=== PATIENT | female | born 1980 ===

== ENCOUNTER 2020-02-16 01:17 | Emergency (ER) | payer SELFPAY | END 2020-02-16 01:30 | disposition left against medical advice (07) | LOC: ED 01:17 | DX: R45.851 Suicidal ideations (principal); Z53.21 Procedure and treatment not carried out due to patient leaving prior to being seen by health care provider ==

== ENCOUNTER 2020-02-16 06:56 | Emergency (ER) | payer SELFPAY ==
[2020-02-16] MEDS ORDERED: chlordiazePOXIDE 25 MG CAP PO ONE (11:30)
--- NOTE | 2020-02-16 11:30 | Emergency Department Report ---
ED Alcohol HPI - General Chief Complaint: Alcohol Stated Complaint: DETOX,CHEST PAIN Time Seen by Provider: 02/16/20 11:05 Source: patient Mode of arrival: Ambulatory Limitations: No Limitations - History of Present Illness Initial Comments: Chief complaint: I want help with math and alcohol." HPI: Is a 39-year-old female who was dropped off with history of methamphetamine and alcohol use who requests detox from methamphetamine and alcohol. She was dropped off by her cousin at the local [employer]. Her cousin left her at the gas station. She has been using methamphetamine alcohol daily after argument with her mother. She has anxiety depression. SHe denies suicidal ideation. She denies physical complaints. Last use of methamphetamine and alcohol this morning. MD Complaint: desires rehab Chronic Alcohol Use: Yes Associated Symptoms: depression - Related Data Previous Rx's Medication Instructions Recorded Last Taken Type chlordiazePOXIDE [Librium] 25 mg PO Q6H PRN #10 capsule 02/16/20 Unknown Rx Allergies Allergy/AdvReac Type Severity Reaction Status Date / Time Penicillins Allergy Unknown Verified 02/16/20 07:46 ED Review of Systems ROS: Stated complaint: DETOX,CHEST PAIN Other details as noted in HPI Comment: All other systems reviewed and negative Constitutional: denies: fever, malaise Respiratory: denies: cough, shortness of breath Cardiovascular: denies: chest pain ED Past Medical Hx - Past Medical History Previous Medical History?: Yes Hx Heart Attack/AMI: Yes Hx Psychiatric Treatment: Yes (ANXIETY DEPRESSION) - Surgical History Past Surgical History?: Yes Hx Coronary Stent: Yes - Medications Home Medications: Home Medications Medication Instructions Recorded Confirmed Last Taken Type chlordiazePOXIDE [Librium] 25 mg PO Q6H PRN #10 capsule 02/16/20 Unknown Rx ED Physical Exam - General Limitations: No Limitations General appearance: alert, in no apparent distress - Head Head exam: Present: atraumatic, normocephalic - Eye Eye exam: Present: normal appearance - ENT ENT exam: Present: mucous membranes moist - Neck Neck exam: Present: normal inspection, full ROM - Respiratory Respiratory exam: Present: normal lung sounds bilaterally. Absent: respiratory distress, wheezes, rales, rhonchi - Cardiovascular Cardiovascular Exam: Present: regular rate, normal rhythm, normal heart sounds. Absent: systolic murmur, diastolic murmur, rubs, gallop - GI/Abdominal GI/Abdominal exam: Present: soft, normal bowel sounds. Absent: distended, tenderness, guarding - Extremities Exam Extremities exam: Present: normal inspection - Back Exam Back exam: Present: normal inspection - Neurological Exam Neurological exam: Present: alert, oriented X3 - Psychiatric Psychiatric exam: Present: normal affect, depressed - Skin Skin exam: Present: warm, dry, intact, normal color. Absent: rash ED Course Vital Signs 02/16/20 07:50 Temperature 98.8 F Pulse Rate 106 H Respiratory 18 Rate Blood Pressure 136/69 [Right] O2 Sat by Pulse 97 Oximetry ED Medical Decision Making - Medical Decision Making Ms. Dc has a history of methamphetamine alcohol use. She is concerned for alcohol withdrawal. I have prescribed Librium. She does not meet criteria for inpatient stabilization. She is discharged home. Critical care attestation.: If time is entered above; I have spent that time in minutes in the direct care of this critically ill patient, excluding procedure time. ED Disposition Clinical Impression: Methamphetamine abuse, Alcohol abuse Disposition: DC-01 TO HOME OR SELFCARE Is pt being admited?: No Does the pt Need Aspirin: No Condition: Stable Instructions: Amphetamines Use Disorder, Alcohol Use Disorder Prescriptions: chlordiazePOXIDE [Librium] 25 mg PO Q6H PRN #10 capsule PRN Reason: alcohol withdrawal symptoms
[2020-02-16 12:33] VITALS: BP 136/68
== END 2020-02-16 11:50 | disposition home or self-care (01) ==
LOC: ED 06:56
DX: F10.10 Alcohol abuse, uncomplicated (principal); F15.10 Other stimulant abuse, uncomplicated; I25.2 Old myocardial infarction; F41.9 Anxiety disorder, unspecified; F32.9 Major depressive disorder, single episode, unspecified; Z98.890 Other specified postprocedural states; Z79.899 Other long term (current) drug therapy; Z88.0 Allergy status to penicillin
CPT/HCPCS: 99282

== ENCOUNTER 2020-11-02 12:07 | Emergency (ER) | payer SELFPAY ==
--- NOTE | 2020-11-02 12:58 | Event Note ---
Date of service: 11/02/20 Event Note: This patient is medically stable and appropriate for treatment in a psychiatric setting, ie. their behavioral disturbance is unlikely to be due to a medical condition or physical trauma, and their medical/surgical treatment for any concomitant conditions is within the capabilities of the receiving facility.
--- NOTE | 2020-11-02 13:01 | Emergency Department Report ---
Didi Doc - Documentation Documentation: 39-year-old female presents to the emergency room stating she needs a medical clearance to go back to her for blood. Patient states that she was seen at [facility] yesterday she was having some chest discomfort. She states that they did blood work EKG. She denies any chest pain or shortness of breath at this time. She is concerned that her anxiety is starting to heightened as she was not given her Klonopin in an Ativan this morning as she was waiting for the pharmacy to deliver. Patient has no other concerns at this time. Patient is unvaccinated. General: Awake, appropriately interactive, no acute distress. Neck: Supple. Full range of motion intact. Cardiovascular: Normal peripheral perfusion. Pulmonary: No respiratory distress. Patient is speaking normally without use of accessory muscles. Skin: No apparent rashes or lesions. Neurological: No facial asymmetry. Speech is clear. Follows commands. Patient is alert and oriented. Musculoskeletal: Full range of motion, no crepitus. Able to bear weight and ambulate without difficulty. Distal neurovascular and motor/sensory function is intact. Psych: Cooperative. Appropriate mood and affect. MDM: Patient is medically cleared to follow-up back at [facility].
--- NOTE | 2020-11-02 13:14 | Emergency Department Report ---
Chief Complaint: Medical Clearance Stated Complaint: MEDICAL CLEARENCE NEEDED Time Seen by Provider: 11/02/20 12:45 - HPI History of Present Illness: 39-year-old female presents to the emergency room stating she needs a medical clearance to go back to her for blood. Patient states that she was seen at [facility] yesterday she was having some chest discomfort. She states that they did blood work EKG. She denies any chest pain or shortness of breath at this time. She is concerned that her anxiety is starting to heightened as she was not given her Klonopin in an Ativan this morning as she was waiting for the pharmacy to deliver. Patient has no other concerns at this time. Patient is unvaccinated. General: Awake, appropriately interactive, no acute distress. Neck: Supple. Full range of motion intact. Cardiovascular: Normal peripheral perfusion. Pulmonary: No respiratory distress. Patient is speaking normally without use of accessory muscles. Skin: No apparent rashes or lesions. Neurological: No facial asymmetry. Speech is clear. Follows commands. Patient is alert and oriented. Musculoskeletal: Full range of motion, no crepitus. Able to bear weight and ambulate without difficulty. Distal neurovascular and motor/sensory function is intact. Psych: Cooperative. Appropriate mood and affect. MDM: Patient is medically cleared to follow-up back at [facility]. - Exam Vital Signs: Vital Signs 11/02/20 11/02/20 12:17 12:27 Temperature 98.0 F 98.4 F Pulse Rate 100 H 92 H Respiratory 16 18 Rate Blood Pressure 136/93 Blood Pressure 130/89 [Right] O2 Sat by Pulse 97 96 Oximetry MSE screening note: Focused history and physical exam performed. Due to findings the following was ordered: ED Disposition for MSE Clinical Impression: Medical clearance for psychiatric admission [facility] Is pt being admited?: No Does the pt Need Aspirin: No Condition: Stable Additional Instructions: Continue taking all medications as prescribed for your psychiatric provider.
[2020-11-02 13:39] VITALS: BP 132/81
--- NOTE | 2020-11-03 14:50 | Electrocardiograph Report ---
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
== END 2020-11-02 13:49 ==
LOC: ED 12:07
DX: Z13.30 Encounter for screening examination for mental health and behavioral disorders, unspecified (principal)
CPT/HCPCS: 93005; 99283